=== PATIENT | female | born 1945 ===

== ENCOUNTER 2016-11-09 06:12 | Observation (INO) | payer OTHER ==
[2016-11-02 15:55] LABS: BASOPHILS 0.3 %; BASOPHILS ABSOLUTE 0.03 10/3/uL (0.0-0.16); EOSINOPHILS 0.8 %; EOSINOPHILS ABSOLUTE 0.08 10/3/uL (0.0-0.53); HEMATOCRIT 41.5 % (36.0-48.0); HEMOGLOBIN 14.1 g/dL (12.0-16.0); IMMATURE GRANULOCYTES 0.2 %; IMMATURE GRANULOCYTES ABSOLUTE 0.02 10/3/uL (0.0-0.11); LYMPHOCYTES 24.8 %; LYMPHOCYTES ABSOLUTE 2.52 10/3/uL (0.67-4.30); MEAN CORPUSCULAR HEMOGLOB 30.3 pg (26.0-34.0); MEAN CORPUSCULAR VOLUME 89.1 fL (80-100); MEAN PLATELET VOLUME 9.3 fL (9.2-13.0); MONOCYTES 6.2 %; MONOCYTES ABSOLUTE 0.63 10/3/uL (0.21-1.20); NEUTROPHILS 67.7 %; NEUTROPHILS ABSOLUTE 6.87 10/3/uL (2.02-8.40); PLATELET COUNT 396 10/3/uL (150-400); RBC DISTRIBUTION WIDTH 13.2 % (12.0-16.0); RED CELL COUNT 4.66 10/6/uL (4.0-5.6); WHITE BLOOD CELLS 10.2 10/3/uL (4.5-10.5)
[2016-11-02 15:56] LABS: MANUAL DIFF NO %
[2016-11-02 16:26] LABS: BUN (BLOOD UREA NITROGEN) 16 MG/DL (6-23); CA 125 II 9.1 U/ML (< 35.0); CALCIUM, SERUM 9.1 MG/DL (8.5-10.4); CHLORIDE, SERUM 110 MMOL/L (96-112); CO2 (CARBON DIOXIDE) 24 MMOL/L (24-34); CREATININE 0.99 MG/DL (0.55-1.02); GFR AFRICAN AMERICAN 66 ML/MIN (>=60); GFR NON AFRICAN AMERICAN 57 ML/MIN (>=60); GLUCOSE, SERUM 99 MG/DL (60-99); POTASSIUM, SERUM 3.3 MMOL/L (3.5-5.3); SODIUM, SERUM 144 MMOL/L (135-148)
--- NOTE | ~2016-11-09 | OP ---
Record Of Operation [facility] [address] [place]. [address] NAME: VERITO ARTIS : 43 STATUS : ADM Veronique PAT#: [id number] AGE: 71 ADM/REG DATE : 11/09/16 MR#: [id number] REPORT SERV DATE: 11/09/16 DICTATED BY: GORGE URIBE DATE: 11/09/16 REPORT STATUS : Draft TRANSCRIBED BY: MODGisela DATE: 11/09/16 DATE OF PROCEDURE: 11/09/2016 PREOPERATIVE DIAGNOSIS: Grade 1 endometrial carcinoma. POSTOPERATIVE DIAGNOSIS: Grade 1 endometrial carcinoma. PROCEDURES: 1. Laparoscopic hysterectomy with bilateral salpingo-oophorectomy for endometrial cancer staging, CPT code 77695. 2. Pelvic lymph node dissection, CPT code 94065. 3. Injection of Indocyanine green for [employer] and identification of sentinel lymph node, CPT code 65222. LEASE OPERATOR: Dr. Melissa Mondragon. ESTIMATED BLOOD LOSS: 50 mL. FLUIDS: 1500 mL of crystalloid. COMPLICATIONS: None. ANESTHESIA: General endotracheal. INDICATIONS AND FINDINGS: This is a 71-year-old female who presents with a biopsy consistent with a grade 1 endometrial carcinoma. She was taken to the operating room for removal of the uterus. Intraoperatively, there was no gross evidence of tumor outside of the uterus. The uterus was removed intact, examined on the back table. It appeared to be consistent with a significant amount of endometrial hyperplasia and less invasive carcinoma, although final pathology will determine. [place] lymph nodes were identified on both the left and right side of the pelvis. There was additional enlarged lymph nodes in the obturator space, which were also removed. Postprocedure a cystoscopy was performed with excellent bilateral ureteral jets. No evidence of bladder defect. Prior to the induction of anesthesia, the patient was treated with Lovenox for DVT prophylaxis. She was also given prophylactic antibiotics. PROCEDURE IN DETAIL: The patient was taken to the operating room and she was placed in supine position for administration of general anesthesia. She was then placed in dorsal lithotomy position and prepped and draped in usual sterile fashion. The cervix was easily visualized. It was injected with approximately 4 mL of Indocyanine green at the 3 and 9 o'clock position. A LEYLA uterine manipulator was placed through the uterine cervix and a KAREN ring was sutured to the patient's cervix. Our attention was then turned towards the anterior abdominal wall, where an incision was made approximately 25 cm above the pubic symphysis and taken down to the underlying layer of fascia. The fascia was grasped with two sutures of 0 Vicryl, tented up, and entered sharply. The peritoneum was then tented up and entered sharply, and a laparoscopic trocar was placed under direct visualization. The Record Of Operation [facility] [address] [place]. [address] NAME: VERITO ARTIS : 43 STATUS : ADM Veronique PAT#: [id number] AGE: 71 ADM/REG DATE : 11/09/16 MR#: [id number] REPORT SERV DATE: 11/09/16 DICTATED BY: GORGE URIBE DATE: 11/09/16 REPORT STATUS : Draft TRANSCRIBED BY: GABO DATE: 11/09/16 abdominal cavity was insufflated, two additional 8 mm trocars were placed, one additional 15 mm trocar was placed. The patient was then docked with a laparoscopic robotic instrument and the remainder of the procedures performed via the da [place]. The above findings noted. Pelvic washings were taken. The retroperitoneal spaces were opened via the round ligaments, which were grasped with bipolar cautery, cauterized and transected bilaterally. The uterine arteries were identified at their origin. Hemoclips were placed to ensure long-term hemostasis. The gonadal vessels were also isolated. Hemoclips were placed to ensure long- term hemostasis. They were then coagulated and transected bilaterally. Anteriorly, a bladder flap was created and taken down to a level well below the cervix. There were sentinel lymph nodes identified on both the left and right side of the pelvis. The sentinel lymph nodes were removed with sharp dissection and cautery for hemostasis. They were placed into EndoCatch bags and delivered through the trocar sites. Additional lymph node dissection was performed within the boundaries of the circumflex iliac vein anteriorly, posteriorly to the obturator nerve, laterally to general femoral nerve, and medially to the superior vesical artery. All these structures were clearly identified and spared bilaterally. The lymphatic tissue including the sentinel lymph nodes, which were identified using [employer] and the enlarged lymph nodes were removed through the trocar site. After excellent hemostasis was assured, the hysterectomy was completed. The uterine arteries were skeletonized at the level of the cervix, grasped with bipolar cautery, cauterized and transected bilaterally. The uterosacral cardinal complex was then taken down with unipolar cautery and a circumferential incision was made around the cervix and vagina, and the uterus, tubes, ovaries, and cervix were delivered through the vagina with the above findings noted. The vaginal cuff was then irrigated with copious amounts of fluid. The vaginal cuff was then closed with a running stitch of #1 PDS V-Loc. The remainder of the pelvis again was irrigated. Excellent hemostasis was assured. The laparoscopic instruments were removed. The initial incision and the 15 mm port were closed with 0 Vicryl in the fascia. The skin sites were closed with 4-0 Vicryl and Dermabond was placed. Postprocedure, a cystoscopy was performed with excellent bilateral ureteral jets. No evidence of bladder defect. At the completion of the procedure, the anesthesia was reversed. The patient was extubated and taken to the recovery room in stable condition. SERGEY/GABO Gorge Uribe M.D. / [id number] CC: Rula Hoang TRACY G
[~2016-11-09 06:12] MED LIST: ASAB PO; BENTYL10 PO; CARDCD300 PO; COZAAR100 MG PO; DEMA10T PO; DILTIAZEM PO; HYDROCHLOROT25 MG PO; KLOR-CON M2020 MEQ PO; LAN125 PO; MEG40 PO; MEVACOR PO; NEXIUM40 PO; PR12.5 PO; SUCR PO; VASOTEC10 PO; VITAMIN D1000 UNI1 PO; [UNRECOGNIZED DRUG - OTHER] PO
[2016-11-10 05:19] LABS: BASOPHILS 0.2 %; BASOPHILS ABSOLUTE 0.02 10/3/uL (0.0-0.16); EOSINOPHILS 0 %; HEMATOCRIT 38.4 % (36.0-48.0); HEMOGLOBIN 12.9 g/dL (12.0-16.0); IMMATURE GRANULOCYTES 0.2 %; IMMATURE GRANULOCYTES ABSOLUTE 0.02 10/3/uL (0.0-0.11); LYMPHOCYTES 8.3 %; LYMPHOCYTES ABSOLUTE 0.91 10/3/uL (0.67-4.30); MEAN CORPUS HGB CONC 33.6 g/dL (32.0-36.0); MEAN CORPUSCULAR HEMOGLOB 30.6 pg (26.0-34.0); MEAN CORPUSCULAR VOLUME 91.2 fL (80-100); MEAN PLATELET VOLUME 9.1 fL (9.2-13.0); MONOCYTES 6.2 %; MONOCYTES ABSOLUTE 0.68 10/3/uL (0.21-1.20); NEUTROPHILS 85.1 %; NEUTROPHILS ABSOLUTE 9.37 10/3/uL (2.02-8.40); PLATELET COUNT 340 10/3/uL (150-400); RBC DISTRIBUTION WIDTH 13.4 % (12.0-16.0); RED CELL COUNT 4.21 10/6/uL (4.0-5.6)
[2016-11-10 05:21] LABS: MANUAL DIFF NO %
[2016-11-10 05:36] LABS: CALCIUM, SERUM 8.9 MG/DL (8.5-10.4); CHLORIDE, SERUM 110 MMOL/L (96-112); CO2 (CARBON DIOXIDE) 24 MMOL/L (24-34); POTASSIUM, SERUM 3.8 MMOL/L (3.5-5.3); SODIUM, SERUM 144 MMOL/L (135-148)
[2016-11-10 05:40] LABS: BUN (BLOOD UREA NITROGEN) 10 MG/DL (6-23); CREATININE 1.49 MG/DL (0.55-1.02); GFR AFRICAN AMERICAN 40 ML/MIN (>=60); GFR NON AFRICAN AMERICAN 35 ML/MIN (>=60); GLUCOSE, SERUM 152 MG/DL (60-99)
[2016-11-10] MEDS ORDERED: MYLICON 80 MG T80 MG PO (09:09)
[2016-11-10] MEDS ORDERED: BIST PO (09:09)
[2016-11-10] MEDS ORDERED: ZOFRAN4 PO (09:14)
[2016-11-10] MEDS ORDERED: PCET PO (09:14)
== END 2016-11-10 10:11 | disposition home or self-care (01) ==
LOC: SDC 06:12 → SDC/OF 11:59 → 4EA 12:56
PROVIDERS: Obstetrics & Gynecology Gynecologic Oncology
PROC: 0UT24ZZ Resection of Bilateral Ovaries, Percutaneous Endoscopic Approach (ICD-10-PCS; 2016-11-09)
PROC: 0UT74ZZ Resection of Bilateral Fallopian Tubes, Percutaneous Endoscopic Approach (ICD-10-PCS; 2016-11-09)
PROC: 07TC4ZZ Resection of Pelvis Lymphatic, Percutaneous Endoscopic Approach (ICD-10-PCS; 2016-11-09)
PROC: 0UT94ZZ Resection of Uterus, Percutaneous Endoscopic Approach (ICD-10-PCS; principal; 2016-11-09 07:00)
PROC: 0UTC4ZZ Resection of Cervix, Percutaneous Endoscopic Approach (ICD-10-PCS; 2016-11-09 07:00)
DX: C54.1 Malignant neoplasm of endometrium (principal); I10 Essential (primary) hypertension; E78.5 Hyperlipidemia, unspecified; M19.90 Unspecified osteoarthritis, unspecified site; M54.5 Low back pain; E66.9 Obesity, unspecified; K21.9 Gastro-esophageal reflux disease without esophagitis; K31.84 Gastroparesis; N80.9 Endometriosis, unspecified
CPT/HCPCS: 36415; 71020; 80048; 85025; 86304; 86850; 86900; 86901; 88112; 88305; 88307; 88309; 88342; 93005; 96374; 96376; A9270-GY; G0378; J0330; J0694; J1170; J2250; J2270; J2405; J2550; J2710; J2795; J3010